=== PATIENT | male | born 1995 | race Caucasian/White ===

== ENCOUNTER 2018-03-16 14:15 | Emergency (ER) | payer BC ==
--- NOTE | 2018-03-16 14:25 | EDPHY ---
H & P Time Seen by Provider: 03/16/18 14:25 Constitutional: Initial Vital Signs Temperature (C) 36.8 C 03/16/18 14:40 Heart Rate 88 03/16/18 14:40 Respiratory Rate 18 03/16/18 14:40 Blood Pressure 130/68 H 03/16/18 14:40 O2 Sat (%) 96 03/16/18 14:40 O2 Delivery Mode Room Air Allergies/Adverse Reactions: No Known Allergies Allergy (Unverified 03/16/18 14:43) Home Medications: Medication Instructions Recorded NK [No Known Home Meds] 03/16/18 Medical Decision Making ED Course/Re-evaluation: CHIEF COMPLAINT: Syncope HISTORY OF PRESENT ILLNESS: The patient is a 22 y/o male arriving via EMS after a syncopal episode around 13:30 this afternoon, 1 hour ago. While eating lunch with a friend he drank soda and a minute later had the sensation of a "carbonated" burning "gas bubble" and indigestion feeling in his stomach and chest. He began breathing quickly and describes "clenching" in his chest. At this point he lost consciousness and his friend describes his body becoming stiff, slumping against the wall and sliding to the floor. He does not describes any tonic-clonic activity. The entire event lasted approximately 20- 30 seconds and he quickly returned quickly to baseline. No tongue bite or incontinence. The patient fainted one time previously when he was dehydrated and ran up stairs [place]. He is typically healthy and denies any history of seizures or cardiac diseases. No trauma or recent illness. He currently feels normal. REVIEW OF SYSTEMS: A comprehensive 10 system review of systems is otherwise negative aside from elements mentioned in the history of present illness and medical decision making. PHYSICAL EXAM: HR, BP, O2 Sat, RR. Temp noted General Appearance: Alert, well hydrated, appropriate, and non-toxic appearing. Head: Atraumatic without scalp tenderness or obvious injury Eyes: Pupils equal, round, reactive to light and accommodation, EOMI, no trauma , no injection. Nose: Atraumatic, no rhinorrhea, clear. Throat: Mucus membranes moist. Neck: Supple, nontender, no lymphadenopathy. Respiratory: No retractions, no distress, no wheezes, and no accessory muscle use. Lungs are clear to auscultation bilaterally. Cardiovascular: Regular rate and rhythm, no murmurs, rubs, or gallops. Good capillary refill all extremities. Gastrointestinal: Abdomen is soft, nontender, non-distended, no masses, no rebound, no guarding, no peritoneal signs. Musculoskeletal: Normal active ROM of all extremities, atraumatic. Neurological: Alert, appropriate, and interactive. The patient has non-focal cranial nerves, motor, sensory, and cerebellar exam. Skin: No rashes, good turgor, no nodules on palpation. Past medical history: Denies Past surgical history: Denies Family history: No history of seizures. Social history: Social alcohol and smoking. Friend at bedside. DIAGNOSTICS/PROCEDURES/CRITICAL CARE TIME: The 12 lead EKG was interpreted by myself. Sinus mechanism. No ischemia. See hard copy and/or "tracemaster" electronic copy for interpretation. DIFFERENTIAL DIAGNOSIS: The differential diagnosis for the patient's syncope included but was not limited to vasovagal syncope, arrhythmia, dehydration, cardiogenic causes, neurogenic causes, and blood loss. MEDICAL DECISION MAKING: This is a healthy 22 y/o male who presents after a syncopal event with an inciting event at lunch. He is currently asymptomatic and his exam is unremarkable. Presentation is consistent with a vasovagal syncope. Cardiac arrhythmia considered, but unlikely given patient's description of events. EKG is normal. Patient will be discharged home with standard care and follow up instructions. Return precautions discussed. He is comfortable with this plan. - Data Points Laboratory Results: Laboratory Results 03/16/18 14:30 03/16/18 14:30 03/16/18 03/16/18 14:30 14:30 WBC 7.96 10^3/uL 10^3/uL (3.80-9.50) RBC 4.83 10^6/uL 10^6/uL (4.40-6.38) Hgb 14.7 g/dL g/dL (13.7-17.5) Hct 42.3 % % (40.0-51.0) MCV 87.6 fL fL (81.5-99.8) MCH 30.4 pg pg (27.9-34.1) MCHC 34.8 g/dL g/dL (32.4-36.7) RDW 12.2 % % (11.5-15.2) Plt Count 202 10^3/uL 10^3/uL (150-400) MPV 11.0 fL fL (8.7-11.7) Neut % (Auto) 60.0 % % (39.3-74.2) Lymph % (Auto) 27.1 % % (15.0-45.0) [place] % (Auto) 7.3 % % (4.5-13.0) Eos % (Auto) 4.5 % % (0.6-7.6) Baso % (Auto) 0.6 % % (0.3-1.7) Nucleat RBC Rel Count 0.0 % % (0.0-0.2) Absolute Neuts (auto) 4.77 10^3/uL 10^3/uL (1.70-6.50) Absolute Lymphs (auto) 2.16 10^3/uL 10^3/uL (1.00-3.00) Absolute Monos (auto) 0.58 10^3/uL 10^3/uL (0.30-0.80) Absolute Eos (auto) 0.36 10^3/uL 10^3/uL (0.03-0.40) Absolute Basos (auto) 0.05 10^3/uL 10^3/uL (0.02-0.10) Absolute Nucleated RBC 0.00 10^3/uL 10^3/uL (0-0.01) Immature Gran % 0.5 % % (0.0-1.1) Immature Gran # 0.04 10^3/uL 10^3/uL (0.00-0.10) Sodium 137 mEq/L mEq/L (135-145) Potassium 4.4 mEq/L mEq/L (3.5-5.2) Chloride 103 mEq/L mEq/L (97-110) Carbon Dioxide 27 mEq/l mEq/l (22-31) Anion Gap 7 mEq/L mEq/L (6-14) BUN 11 mg/dL mg/dL (7-23) Creatinine 0.8 mg/dL mg/dL (0.7-1.3) Estimated GFR > 60 Glucose 99 mg/dL mg/dL (70-100) Calcium 9.8 mg/dL mg/dL (8.5-10.4) Departure - Departure Disposition: Home, Routine, Self-Care Clinical Impression: Syncope Qualifiers: Syncope type: vasovagal syncope Qualified Code(s): R55 - Syncope and collapse Condition: Good Instructions: Syncope (ED) Additional Instructions: Follow up with your primary care provider as needed. Return to the ED for any recurrent symptoms or other worsening of condition. Referrals: Abbie Watt DO [Doctor of Osteopathy] - As per Instructions Report Scribed for: Terry Arnold Report Scribed by: Caryn Mcclain Date of Report: 03/16/18 Time of Report: 14:44
[2018-03-16 14:55] LABS: PLATELET COUNT 202 10^3/uL (150-400)
[2018-03-16 15:47] VITALS: BP 125/87
--- NOTE | 2018-03-16 17:13 | CPEKG ---
Test Reason : OPEN Blood Pressure : / mmHG Vent. Rate : 088 BPM Atrial Rate : 087 BPM P-R Int : 152 ms QRS Dur : 093 ms QT Int : 329 ms P-R-T Axes : 082 069 051 degrees QTc Int : 398 ms Sinus rhythm Probable left atrial enlargement Confirmed by Terry Arnold ([id number] on 03/16/2018 5:13:14 PM Referred By: Confirmed By:Terry Arnold
== END 2018-03-16 15:47 | disposition home or self-care (01) ==
DX: R55 Syncope and collapse (principal)